=== PATIENT | male | born 1990 | race Caucasian/White ===

== ENCOUNTER 2017-05-10 18:58 | Observation (INO) | payer OTHER ==
[~2017-05-10] VITALS: Ht 170.2 cm; Wt 88.5 kg
[~2017-05-10 18:58] MED LIST: TRAM50TA94 PO
[2017-05-10 19:07] VITALS: BP 149/93
[2017-05-10] MEDS ORDERED: NACL 0.9% 500 ML IV ONE (19:31)
[2017-05-10] MEDS ORDERED: PANTOPRAZOLE 40 MG INJ VIAL IVP ONE (19:35)
[2017-05-10] MEDS ORDERED: KETOROLAC 30 MG/ML VIAL IVP ONE (19:35)
[2017-05-10] MEDS ORDERED: ONDANSETRON 4 MG/2 ML VIAL IVP ONE (19:35)
[2017-05-10 20:06] LABS: BASOPHILS # (AUTO) 0.3 K/uL (0.00-0.22); BASOPHILS % (AUTO) 2.9 % (0.0-2.0); EOSINOPHILS # (AUTO) 0.2 K/uL (0-0.4); EOSINOPHILS % (AUTO) 2.8 % (0.0-4.0); HEMATOCRIT 49.4 % (36-52); HEMOGLOBIN 16.7 g/dL (12.0-18.0); LYMPHOCYTES % (AUTO) 33.5 % (20.5-51.1); MEAN CORPUSCULAR HEMOGLOBIN 31 pg (27-31); MEAN CORPUSCULAR HGB CONC 34 g/dL (33-37); MEAN CORPUSCULAR VOLUME 90 fL (80-94); MONOCYTES # (AUTO) 0.9 K/uL (0.8-1.0); MONOCYTES % (AUTO) 10.6 % (1.7-9.3); NEUTROPHILS # (AUTO) 4.5 K/uL (1.8-7.7); NEUTROPHILS % (AUTO) 50.2 % (42.2-75.2); PLATELET COUNT (AUTO) 257 K/uL (140-450); RED BLOOD CELL COUNT(AUTO) 5.48 MIL/uL (4.20-6.10); RED CELL DISTRIBUTION WIDTH 12.2 % (11.6-13.7); WHITE BLOOD COUNT (AUTO) 8.9 K/uL (4.8-10.8)
[2017-05-10 20:15] LABS: ANION GAP 15.5 (8-16); CALCIUM 8.9 mg/dL (8.5-10.1); CARBON DIOXIDE 25.4 mmol/L (21-32); CREATININE 1.1 mg/dL (0.7-1.3); POTASSIUM 3.9 mmol/L (3.5-5.1)
[2017-05-10 20:21] LABS: ALBUMIN 4.7 g/dL (3.4-5.0); TOTAL PROTEIN, SERUM 8.4 g/dL (6.4-8.2)
[2017-05-10] MEDS ORDERED: ACET-2869 PO (21:54)
[2017-05-10] MEDS ORDERED: ONDA4TAB PO ×2 (21:54)
[2017-05-10] MEDS ORDERED: fentaNYL 0.05 MG/ML VIAL IVP ONE (22:20)
[2017-05-10] MEDS ORDERED: NACL 0.9% 1,000 ML IV SCH (22:36)
[2017-05-10] MEDS ORDERED: MORPHINE SULFATE 4 MG/ML SYR IVP PRN (22:40)
[2017-05-10] MEDS ORDERED: ONDANSETRON 4 MG/2 ML VIAL IVP PRN (22:40)
[2017-05-10 23:05] VITALS: BP 106/70
[2017-05-10] MEDS ORDERED: DEXT 5% /NACL 0.9% 1,000 ML IV SCH (23:45)
[2017-05-10] MEDS: MORPHINE SULFATE 2 MG/ML SYR IVP PRN (23:55)
[2017-05-11 05:11] VITALS: BP 124/67
[2017-05-11] MEDS: MORPHINE SULFATE 2 MG/ML SYR IVP PRN (05:17)
[2017-05-11 06:36] LABS: BASOPHILS # (AUTO) 0.2 K/uL (0.00-0.22); BASOPHILS % (AUTO) 3.6 % (0.0-2.0); EOSINOPHILS # (AUTO) 0.1 K/uL (0-0.4); EOSINOPHILS % (AUTO) 1.9 % (0.0-4.0); HEMATOCRIT 43.4 % (36-52); HEMOGLOBIN 14.9 g/dL (12.0-18.0); LYMPHOCYTES # (AUTO) 2.1 K/uL (2.0-11.5); LYMPHOCYTES % (AUTO) 29.7 % (20.5-51.1); MEAN CORPUSCULAR HEMOGLOBIN 31 pg (27-31); MEAN CORPUSCULAR HGB CONC 34 g/dL (33-37); MEAN CORPUSCULAR VOLUME 91 fL (80-94); MONOCYTES # (AUTO) 0.7 K/uL (0.8-1.0); MONOCYTES % (AUTO) 9.6 % (1.7-9.3); NEUTROPHILS # (AUTO) 3.8 K/uL (1.8-7.7); NEUTROPHILS % (AUTO) 55.2 % (42.2-75.2); PLATELET COUNT (AUTO) 216 K/uL (140-450); RED BLOOD CELL COUNT(AUTO) 4.78 MIL/uL (4.20-6.10); RED CELL DISTRIBUTION WIDTH 12.1 % (11.6-13.7); WHITE BLOOD COUNT (AUTO) 6.9 K/uL (4.8-10.8)
[2017-05-11 06:59] LABS: ALBUMIN 3.9 g/dL (3.4-5.0); ANION GAP 12.4 (8-16); CALCIUM 8.3 mg/dL (8.5-10.1); CARBON DIOXIDE 25.5 mmol/L (21-32); POTASSIUM 3.9 mmol/L (3.5-5.1); TOTAL BILIRUBIN 2.9 mg/dL (0.0-1.0); TOTAL PROTEIN, SERUM 7.1 g/dL (6.4-8.2)
[2017-05-11] MEDS ORDERED: MAGNESIUM HYDROXIDE 2400 MG/30 ML UDC PO SCH (07:30)
[2017-05-11 08:00] VITALS: BP 128/64
[2017-05-11] MEDS ORDERED: HYDROcodone/APAP 10/325 MG 1 TAB TAB PO PRN (08:40)
[2017-05-11] MEDS ORDERED: ALUMINUM HYD/MAG/SIMETHICONE 30 ML UDC PO PRN (08:40)
[2017-05-11] MEDS ORDERED: HYDROcodone/APAP 5/325 MG 1 TAB TAB PO PRN (08:40)
[2017-05-11] MEDS ORDERED: DOCU-67 PO (08:46)
[2017-05-11] MEDS ORDERED: SUCRALFATE 1 GM TAB PO SCH (09:00)
[2017-05-11] MEDS ORDERED: DOCUSATE SODIUM 100 MG GELCAP PO SCH (09:00)
== END 2017-05-11 09:55 | disposition home or self-care (01) ==
LOC: MED 18:58 → MTU 22:41
PROVIDERS: ADMIT Hospitalist; ATTEND Hospitalist
DX: K59.00 Constipation, unspecified (principal); E80.4 Gilbert syndrome; R11.2 Nausea with vomiting, unspecified; F12.10 Cannabis abuse, uncomplicated; Z72.0 Tobacco use
CPT/HCPCS: 36415; 76705; 80053; 83690; 85025; 87081; 96361; 96374; 96375; 99285; C9113; G0378; J1885; J2270; J2405; J3010; J7030; J7042; Q0092; 96376

== ENCOUNTER 2021-02-11 02:48 | Emergency (ER) | payer SELFPAY ==
[~2021-02-11] VITALS: Ht 170.2 cm; Wt 102.1 kg
[~2021-02-11 02:48] MED LIST changes: +DOCU-299 PO; +HYDR-5122 PO; +ONDA4TAB PO; -TRAM50TA94 PO
[2021-02-11 02:49] VITALS: BP 128/88
[2021-02-11] MEDS ORDERED: NACL 0.9% 1,000 ML IV SCH (03:25)
[2021-02-11] MEDS ORDERED: ONDANSETRON 4 MG/2 ML VIAL IVP ONE (03:25)
[2021-02-11 03:42] LABS: BASOPHILS # (AUTO) 0.1 K/uL (0.00-0.22); BASOPHILS % (AUTO) 0.5 % (0.0-2.0); EOSINOPHILS # (AUTO) 0.3 K/uL (0-0.4); EOSINOPHILS % (AUTO) 2.9 % (0.0-4.0); HEMATOCRIT 47.8 % (36-52); HEMOGLOBIN 16.5 g/dL (12.0-18.0); LYMPHOCYTES # (AUTO) 4.7 K/uL (2.0-11.5); LYMPHOCYTES % (AUTO) 48.6 % (20.5-51.1); MEAN CORPUSCULAR HEMOGLOBIN 32 pg (27-31); MEAN CORPUSCULAR HGB CONC 35 g/dL (33-37); MEAN CORPUSCULAR VOLUME 91.2 fL (80-94); MONOCYTES # (AUTO) 0.7 K/uL (0.8-1.0); MONOCYTES % (AUTO) 6.9 % (1.7-9.3); NEUTROPHILS % (AUTO) 41.1 % (42.2-75.2); PLATELET COUNT (AUTO) 266 K/uL (140-450); RED BLOOD CELL COUNT(AUTO) 5.24 MIL/uL (4.20-6.10); RED CELL DISTRIBUTION WIDTH 12.7 % (11.6-13.7); WHITE BLOOD COUNT (AUTO) 9.7 K/uL (4.8-10.8)
[2021-02-11 04:01] LABS: ALBUMIN 4.4 g/dL (3.4-5.0); ANION GAP 20.6 (8-16); ASPARTATE AMINOTRANSFERASE 15 U/L (15-37); CARBON DIOXIDE 20.1 mmol/L (21-32); CHLORIDE 104 mmol/L (98-107); CREATININE 1.1 mg/dL (0.6-1.3); GFR ARICAN-AMERICAN 100 mL/min (>90); GLUCOSE 127 mg/dL (74-106); LIPASE 177 U/L (73-393); POTASSIUM 3.7 mmol/L (3.5-5.1); SODIUM SERUM 141 mmol/L (136-145); TOTAL BILIRUBIN 1.2 mg/dL (0.0-1.0); UREA NITROGEN, BLOOD 18 mg/dL (7-18)
[2021-02-11 04:13] LABS: ACETAMINOPHEN < 0.5 ug/ml (10-30); SALICYLATE < 2.8 mg/dL (2.8-20.0)
[2021-02-11] MEDS ORDERED: KETOROLAC 15 MG/ML VIAL IVP ONE (04:15)
[2021-02-11 05:20] LABS: APPEARANCE,URINE CLEAR (CLEAR); BILIRUBIN,URINE NEGATIVE (NEGATIVE); BLOOD, URINE NEGATIVE (NEGATIVE); COLOR,URINE YELLOW (YELLOW); LEUKOCYTE ESTERASE ,URINE NEGATIVE (NEGATIVE); NITRITE, URINE NEGATIVE (NEGATIVE); PH,URINE 5.5 (5.0-9.0); UGLUCOSE NEGATIVE (NEGATIVE)
[2021-02-11] MEDS ORDERED: ONDA-24 SL (05:24)
[2021-02-11] MEDS ORDERED: IBUP-1842 PO (05:24)
[2021-02-11 05:40] VITALS: BP 112/73
[2021-02-11 05:46] LABS: BARBITURATE, URINE NEGATIVE ng/ml (NEG <=200); BENZODIAZEPINE, URINE NEGATIVE ng/mL (NEG <=200); CANNABINOID, URINE POSITIVE ng/mL (NEG <=50); COCAINE, URINE NEGATIVE ng/mL (NEG <=300); OPIATE, URINE NEGATIVE ng/mL (NEG <=2000); PHENCYCLIDINE SCREEN,URINE NEGATIVE ng/mL (NEG <=25)
== END 2021-02-11 05:40 | disposition home or self-care (01) ==
LOC: MED 02:48
DX: F10.129 Alcohol abuse with intoxication, unspecified (principal); R41.82 Altered mental status, unspecified; Y90.9 Presence of alcohol in blood, level not specified; Z88.1 Allergy status to other antibiotic agents; Z79.899 Other long term (current) drug therapy
CPT/HCPCS: 36415; 70450; 71045; 80053; 80305; 81003; 83690; 84484; 85025; 93005; 96361; 96374; 96375; 99285; G0480; G0482; J1885; J2405; J7030